=== PATIENT | female | born 1995 | race Caucasian/White ===

== ENCOUNTER 2017-07-20 07:12 | Emergency (ER) | payer OTHER ==
[2017-07-20] MEDS ORDERED: Ibuprofen 800 MG TAB ONE (07:39)
--- NOTE | 2017-07-20 08:13 | RAD ---
RIGHT FOOT THREE VIEWS: 07/20/2017 HISTORY: Dropped steel floor nicky on foot. Trauma. Pain. COMPARISON: None. FINDINGS: No displaced fracture or evidence of dislocation seen. No radiopaque foreign body or subcutaneous ga s. IMPRESSION: No displaced fracture. POS: [facility]
== END 2017-07-20 08:07 | disposition home or self-care (01) ==
LOC: NAV ERS 07:12
DX: S90.31XA Contusion of right foot, initial encounter (principal); W20.8XXA Other cause of strike by thrown, projected or falling object, initial encounter